=== PATIENT | male | born 1955 | race Caucasian/White ===

== ENCOUNTER 2018-05-08 14:45 | Outpatient (RCR) | payer MEDICARE, SELFPAY ==
[2018-05-08 15:04] VITALS: BP 153/85; PULSE 64; RESP 16; TEMP 36.6; BMI 46.7
--- NOTE | 2018-05-08 16:08 | PCM.WC.PN ---
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 He relates there is delayed healing and asked for help. He denies recent trauma. He denies claudication, he does have some burning sensation to the lower extremities. He denies fever, chill, nausea, vomiting. Progress of Wound: Stable - Physical Exam Vital Signs Temp Pulse Resp BP 98 F 64 16 153/85 H 05/08/18 15:04 05/08/18 15:04 05/08/18 15:04 05/08/18 15:04 General: Alert, Oriented x3, Cooperative, No apparent distress HEENT: Atraumatic Extremities: No cyanosis, Capillary Refill Less than 3 Seconds, No Calf Tenderness - Negative Roslyn and Oropeza bilateral, Diminished Peripheral Pulses, Edema Skin: Ulcer/ Wound - No purulence, erythema, streaking, odor, necrosis, or infection. There is no deep exposed tissue. The adjacent skin is atrophic and hairless. Wound Measurements and Assessment WC - Nurse 1 - General Ulcer Measurement Start: 05/08/18 15:04 Freq: Status: Active Protocol: Activity Type Activity Date Activity User E-Sign Co-Sign Detail Recorded Client Recorded Date Recorded By Document 05/08/18 15:04 [facility] [id number] 05/08/18 15:25 [facility] 05/08/18 15:04 Wound Center Nurse 1 [Ulcer Assessment] #1- RT MED LE -Combined with other wound No -Current Size (cm) - Length 4.2 -Current Size (cm) - Width 4.9 -Current Size (cm) - Depth 0.2 -Total Square Cm 20.58 -Date of Last Picture (Recall this 05/08/18 field) -Photo Taken Yes -Epithelialization None Present -Tunneling No -Undermining/Tunneling No -Circular Undermining No -Exudate Amt None Present (0 %) -Wound Margin Distinct, Outline Attached -Granulation Amt Large (67-100%) -Granulation Quality Red -Slough/Fibrin Yes -Necrosis Amt Small (1-33%) -Necrotic Tissue Type Adherent Slough -Structure Exposed None/Limited to Skin Breakdown -Texture (Joelle-wound Skin Appearance) Scarring -Moisture (Joelle-wound Skin Appearance Assessed ) Dry/Scaly -Color (Joelle-wound Skin Appearance) Hemosiderin Staining -Temperature (Joelle-wound Skin No Abnormality Appearance) (Pt Warm) -Tenderness on Palpation (Joelle-wound No Skin Appearance) -Ulcer Cleansing Rinsed/ Irrigated with Saline -Foul Odor after Cleansing No -Anesthetic Used 4% Lidocaine Solution [Edema Assessment] -Lower Limb Edema Present Yes -Right Calf (cm) 51.5 -Right Ankle (cm) 32 -Left Calf (cm) 48 -Left Ankle (cm) 29 WC - Nurse 2 - General Ulcer CM Notes Start: 05/08/18 15:04 Freq: Status: Active Protocol: Activity Type Activity Date Activity User E-Sign Co-Sign Detail Recorded Client Recorded Date Recorded By Document 05/08/18 15:55 [id number] 05/08/18 16:03 05/08/18 15:55 Wound Center Nurse 2 [Procedure/Treatment] #1- RT MED LE -Time 15:57 -Correct Patient Yes -Correct Side, Site, Position Yes -Correct Procedure Yes -Procedure Performed Yes -Type of Procedure Debridement -Clinical Debridement Subcutaneous -Post Debridement Size (cm) - Length 4.3 -Post Debridement Size (cm) - Width 5 -Post Debridement Size (cm) - Depth 0.2 -Total Square Cm 21.5 -Wound/Ulcer Outcome Not Healed -Ulcer Cleansing Rinsed/ Irrigated with Saline -Foul Odor after Cleansing No -Bioengineered Tissue No -Bleeding Controlled with Pressure -Treatment Response Procedure Tolerated Well [See Physician Procedure note for Specifics] Pain Scale: 0-10 Numeric [Pain] -Is Patient Pain Free? Yes Musculoskeletal: No Tenderness to Palpation of Joints or Extremities, Muscle Wasting, - - 5 out of 5 ankle muscle strength in all directions. Active range of motion digits noted. The compartments of bilateral lower extremities remain soft on palpation. Neurological: Sensory exam intact to light touch and pain Psych/Mental Status: Normal Affect, Appropriate Debridement Note Post-Debridement Measurements/Treatment WC - Nurse 2 - General Ulcer CM Notes Start: 05/08/18 15:04 Freq: Status: Active Protocol: Activity Type Activity Date Activity User E-Sign Co-Sign Detail Recorded Client Recorded Date Recorded By Document 05/08/18 15:55 [id number] 05/08/18 16:03 05/08/18 15:55 Wound Center Nurse 2 #1- RT MED LE -Time 15:57 -Correct Patient Yes -Correct Side, Site, Position Yes -Correct Procedure Yes -Procedure Performed Yes -Type of Procedure Debridement -Clinical Debridement Subcutaneous -Post Debridement Size (cm) - Length 4.3 -Post Debridement Size (cm) - Width 5 -Post Debridement Size (cm) - Depth 0.2 -Total Square Cm 21.5 -Wound/Ulcer Outcome Not Healed -Ulcer Cleansing Rinsed/ Irrigated with Saline -Foul Odor after Cleansing No -Bioengineered Tissue No -Bleeding Controlled with Pressure -Treatment Response Procedure Tolerated Well Pain Scale: 0-10 Numeric Is Patient Pain Free? Yes Wound debrided: leg Laterality: Right Type of Debridement: Excisional debridement Anesthesia Used: 4% Lidocaine Solution Depth: in the subcutaneous layer Percentage of wound debrided: 100 Instrument Used: #15 blade Tissue Removed: fibrous, devitalized subcutaneous, biofilm, slough Severity: Fat Layer Exposed Amount of bleeding with debridement: Mild Bleeding Controlled with: Pressure Patient tolerated procedure well Assessment/Plan Assessment: Right leg ulcer with fat layer exposed. Edema lower extremity. Liver disease secondary to previous alcoholism. Malnutrition. Delayed healing Plan: I reviewed and discussed his case today. The basics of wound healing and etiology were reviewed in detail. Excisional subcutaneous debridement was performed as noted in the clinical panel. He is reassured no deep tissue or signs of infection are noted today. To change his dressing daily with hydrogel and Adaptic. Advanced wound care products will be considered if lack of healing is noted. I recommend a nutritional supplementation of Dustin to optimize healing; a prescription was provided. To elevate limbs at rest to reduce edema. To avoid idle standing or sitting. To wear Tubigrip compression dressings and these were dispensed today. I recommend a baseline labs to better understand his medical baseline and he had a white blood cell count 5.5 and albumin of 3.4. It is noted that his alkaline phosphatase and AST is slightly elevated. Blood flow studies will be ordered to better assess his lower extremity healing capability. To monitor for infection development. I answered all his questions. I recommend he follow-up in [facility] or call sooner if he has any questions or concerns.
== END 2018-05-19 23:59 ==
LOC: WC 14:45
PROVIDERS: Visit Provider Podiatrist
DX: I73.9 Peripheral vascular disease, unspecified (principal); K70.9 Alcoholic liver disease, unspecified; R60.0 Localized edema; L97.812 Non-pressure chronic ulcer of other part of right lower leg with fat layer exposed
CPT/HCPCS: 11042; 11045; 99213; G0463

== ENCOUNTER → 2018-05-09 08:22 | Outpatient (CLI) | payer BC, SELFPAY ==
[2018-05-09 09:06] LABS: Absolute Lymphocyte Count 0.88 X10^3/ul (0.83-4.51); Absolute Neutrophil Count 3.6 X10^3/uL (2.0-7.7); Basophil# 0.07 X10^3/uL; Basophil% 1.3 % (0-1); Eosinophil# 0.17 X10^3/uL; Eosinophils% 3.1 % (0-5); Hematocrit 44.9 % (40-54); Hemoglobin 15.5 g/dl (13.0-16.5); Lymphocyte # 0.88 X10^3/ul (4.0); Mean Corp Hgb Conc 34.5 g/gl (32-36); Mean Corpuscular Volume 92.6 fL (80-94); Monocyte# 0.76 X10^3/uL; Monocyte% 13.8 % (0-10); Neutrophil # 3.62 X10^3/uL (2.7-7.7); Neutrophil % 65.6 % (47-70); Platelet Count 131 K/mm3 (150-450); RBC Distribution Width CV 12.9 % (11.6-14.6); RBC Distribution Width SD 43.1 fl (35.1-43.9); Red Blood Count 4.85 M/mm3 (4.6-6.2); White Blood Count 5.5 K/mm3 (4.4-11.0)
[2018-05-09 09:07] LABS: POSITIVE COUNT NO; POSITIVE DIFFERENTIAL NO; POSITIVE MORPHOLOGY NO
[2018-05-09 09:14] LABS: AST(SGOT) 39 U/L (15-37); Alanine Aminotransfer ALT/SGPT 31 U/L (16-61); Albumin, Serum 3.4 g/dL (3.2-5.0); Alkaline Phosphatase 124 U/L (45-117); Anion Gap 9 (5-15); BUN 23 mg/dL (7-18); BUN/Creat Ratio 15.6 RATIO (10-20); Calcium,Total 8.7 mg/dL (8.5-10.1); Chloride 102 mmol/L (98-107); Creatinine, Serum 1.47 mg/dL (0.70-1.30); EST Glomerular Filtration Rate 51 mL/min (>60); Est Glom Filt Rate - Afr Amer 62 mL/min (>60); Globulin 3.5 g/dL (2.2-4.2); Glucose 128 mg/dL (74-106); Protein, Total 6.9 g/dL (6.4-8.2); Sodium Level 136 mmol/L (136-145)
== END ==
PROVIDERS: Visit Provider Podiatrist
DX: I73.9 Peripheral vascular disease, unspecified (principal); R60.0 Localized edema; L97.912 Non-pressure chronic ulcer of unspecified part of right lower leg with fat layer exposed
CPT/HCPCS: 36415; 80053; 85025

== ENCOUNTER 2018-05-29 09:45 | Outpatient (RCR) | payer BC, SELFPAY ==
[2018-05-20 01:47] VITALS: BP 153/85; PULSE 64; RESP 16; TEMP 36.6
[2018-05-22 15:31] VITALS: BP 130/76; PULSE 58; RESP 20; TEMP 36.8
--- NOTE | 2018-05-22 17:11 | PN.PCM_ITS ---
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 He relates there is delayed healing and asked for help. His leg is still very swollen. He denies recent trauma. He denies claudication, he does have some burning sensation to the lower extremities. He denies fever, chill, nausea, vomiting. Progress of Wound: Stable - Physical Exam Vital Signs Temp Pulse Resp BP 98.2 F 58 L 20 H 130/76 H 05/22/18 15:31 05/22/18 15:31 05/22/18 15:31 05/22/18 15:31 General: Alert, Oriented x3, Cooperative Extremities: No cyanosis, Capillary Refill Less than 3 Seconds, No Calf Tenderness - negative bladimir and hardy bilatera. no calor or erythema is noted right limb, Diminished Peripheral Pulses, Edema - moderate bilateral lower extremities Skin: Ulcer/ Wound - no purulence, no erythema, no infection, no streaking. peripheral skin is hairless and atrophic Wound Measurements and Assessment WC - Nurse 1 - General Ulcer Measurement Start: 05/22/18 15:30 Freq: Status: Active Protocol: Activity Type Activity Date Activity User E-Sign Co-Sign Detail Recorded Client Recorded Date Recorded By Document 05/22/18 15:31 DL [id number] 05/22/18 15:43 DL 05/22/18 15:31 Wound Center Nurse 1 [Ulcer Assessment] #2 R Med LE Sup. Cluster -Current Size (cm) - Length 4.7 -Current Size (cm) - Width 2 -Current Size (cm) - Depth 0.1 -Total Square Cm 9.4 -Photo Taken Yes -Exudate Amt Small (1-33%) -Exudate Type Serosanguineous -Wound Margin Distinct, Outline Attached -Granulation Amt Medium (34-66%) -Granulation Quality [place] Red -Necrosis Amt Medium (34-66%) -Necrotic Tissue Type Adherent Slough -Structure Exposed N/A -Texture (Joelle-wound Skin Appearance) Scarring -Moisture (Joelle-wound Skin Appearance Maceration ) -Color (Joelle-wound Skin Appearance) Erythema Hemosiderin Staining Rubor -Temperature (Joelle-wound Skin No Abnormality Appearance) (Pt Warm) -Ulcer Cleansing Rinsed/ Irrigated with Saline -Foul Odor after Cleansing No -Anesthetic Used 4% Lidocaine Solution #1- RT MED LE -Current Size (cm) - Length 4.2 -Current Size (cm) - Width 5 -Current Size (cm) - Depth 0.1 -Total Square Cm 21.0 -Photo Taken No -Exudate Amt Medium (34-66%) -Exudate Type Serosanguineous -Wound Margin Distinct, Outline Attached -Granulation Amt Large (67-100%) -Granulation Quality Red -Necrosis Amt Small (1-33%) -Necrotic Tissue Type Adherent Slough -Structure Exposed N/A -Texture (Joelle-wound Skin Appearance) Scarring -Moisture (Joelle-wound Skin Appearance Maceration ) -Color (Joelle-wound Skin Appearance) No Abnormality Erythema Hemosiderin Staining Rubor -Tenderness on Palpation (Joelle-wound No Skin Appearance) -Ulcer Cleansing Rinsed/ Irrigated with Saline -Foul Odor after Cleansing No -Anesthetic Used 4% Lidocaine Solution [Edema Assessment] -Right Calf (cm) 50.5 -Right Ankle (cm) 32 -Point of Measurement (cm from the 47.3 distal point) -Point of measurement (cm from the 29.5 medial instep) WC - Nurse 2 - General Ulcer CM Notes Start: 05/22/18 15:30 Freq: Status: Active Protocol: Activity Type Activity Date Activity User E-Sign Co-Sign Detail Recorded Client Recorded Date Recorded By Document 05/22/18 15:55 [id number] 05/22/18 15:57 05/22/18 15:55 Wound Center Nurse 2 [Procedure/Treatment] #2 R Med LE Sup. Cluster -Time 15:56 -Correct Patient Yes -Correct Side, Site, Position Yes -Correct Procedure Yes -Procedure Performed Yes -Type of Procedure Debridement -Clinical Debridement Subcutaneous -Post Debridement Size (cm) - Length 4.8 -Post Debridement Size (cm) - Width 2.1 -Post Debridement Size (cm) - Depth 0.1 -Total Square Cm 10.08 -Wound/Ulcer Outcome Not Healed -Ulcer Cleansing Rinsed/ Irrigated with Saline -Foul Odor after Cleansing No -Bioengineered Tissue No -Topical Lidocaine (%) 4 -Bleeding Controlled with Pressure -Treatment Response Procedure Tolerated Well #1- RT MED LE -Time 15:56 -Correct Patient Yes -Correct Side, Site, Position Yes -Correct Procedure Yes -Procedure Performed Yes -Type of Procedure Debridement -Clinical Debridement Subcutaneous -Post Debridement Size (cm) - Length 4.3 -Post Debridement Size (cm) - Width 5.1 -Post Debridement Size (cm) - Depth 0.1 -Total Square Cm 21.93 -Wound/Ulcer Outcome Not Healed -Ulcer Cleansing Rinsed/ Irrigated with Saline -Foul Odor after Cleansing No -Bioengineered Tissue No -Topical Lidocaine (%) 4 -Bleeding Controlled with Pressure -Treatment Response Procedure Tolerated Well [See Physician Procedure note for Specifics] Pain Scale: 0-10 Numeric [Pain] -Is Patient Pain Free? Yes Musculoskeletal: No Tenderness to Palpation of Joints or Extremities, Muscle Wasting, - - compartment lower leg right remains soft Neurological: - - lack of normal epicritic sensation via touch and debridement noted Psych/Mental Status: Normal Affect, Appropriate Debridement Note Post-Debridement Measurements/Treatment WC - Nurse 2 - General Ulcer CM Notes Start: 05/22/18 15:30 Freq: Status: Active Protocol: Activity Type Activity Date Activity User E-Sign Co-Sign Detail Recorded Client Recorded Date Recorded By Document 05/22/18 15:55 [id number] 05/22/18 15:57 05/22/18 15:55 Wound Center Nurse 2 #2 R Med LE Sup. Cluster -Time 15:56 -Correct Patient Yes -Correct Side, Site, Position Yes -Correct Procedure Yes -Procedure Performed Yes -Type of Procedure Debridement -Clinical Debridement Subcutaneous -Post Debridement Size (cm) - Length 4.8 -Post Debridement Size (cm) - Width 2.1 -Post Debridement Size (cm) - Depth 0.1 -Total Square Cm 10.08 -Wound/Ulcer Outcome Not Healed -Ulcer Cleansing Rinsed/ Irrigated with Saline -Foul Odor after Cleansing No -Bioengineered Tissue No -Topical Lidocaine (%) 4 -Bleeding Controlled with Pressure -Treatment Response Procedure Tolerated Well #1- RT MED LE -Time 15:56 -Correct Patient Yes -Correct Side, Site, Position Yes -Correct Procedure Yes -Procedure Performed Yes -Type of Procedure Debridement -Clinical Debridement Subcutaneous -Post Debridement Size (cm) - Length 4.3 -Post Debridement Size (cm) - Width 5.1 -Post Debridement Size (cm) - Depth 0.1 -Total Square Cm 21.93 -Wound/Ulcer Outcome Not Healed -Ulcer Cleansing Rinsed/ Irrigated with Saline -Foul Odor after Cleansing No -Bioengineered Tissue No -Topical Lidocaine (%) 4 -Bleeding Controlled with Pressure -Treatment Response Procedure Tolerated Well Pain Scale: 0-10 Numeric Is Patient Pain Free? Yes Wound debrided: leg Laterality: Right Type of Debridement: Excisional debridement Anesthesia Used: 4% Lidocaine Solution Depth: in the subcutaneous layer Percentage of wound debrided: 100 Instrument Used: #15 blade Tissue Removed: fibrous, devitalized subcutaneous, biofilm, slough Severity: Fat Layer Exposed Amount of bleeding with debridement: Mild Bleeding Controlled with: Pressure Patient tolerated procedure well Assessment/Plan Assessment: Right leg ulcer with fat layer exposed. Edema lower extremity. Liver disease secondary to previous alcoholism. Malnutrition. Delayed healing Plan: I reviewed and discussed his case today. The basics of wound healing and etiology were reviewed in detail. Excisional subcutaneous debridement was performed as noted in the clinical panel. He is reassured no deep tissue or signs of infection are noted today. To change his dressing daily with adiel. He is certain he wants to use a white pad dressing that he has used in the past at a different wound care center. I reassured him that I do not know what product he is talking about and we will consider it if he has more information in the future. Advanced wound care products will be considered if lack of healing is noted. I recommend a nutritional supplementation of Dustin to optimize healing; a prescription was provided. To elevate limbs at rest to reduce edema. To avoid idle standing or sitting. To wear Tubigrip compression dressings and these were dispensed today. His leg edema is a concern and he defers vascular work up. He has venous insufficiency and uncontrolled edema management; compliance was discussed today. I recommend a baseline labs to better understand his medical baseline and he had a white blood cell count 5.5 and albumin of 3.4. It is noted that his alkaline phosphatase and AST is slightly elevated. Blood flow studies will be ordered to better assess his lower extremity healing capability. To monitor for infection development. I answered all his questions. I recommend he follow-up in 1 week at the [facility] or call sooner if he has any questions or concerns.
== END 2018-06-19 23:59 ==
LOC: WC 09:45
PROVIDERS: Visit Provider Podiatrist
DX: I73.9 Peripheral vascular disease, unspecified (principal); L97.812 Non-pressure chronic ulcer of other part of right lower leg with fat layer exposed; K70.9 Alcoholic liver disease, unspecified; R60.0 Localized edema; I87.2 Venous insufficiency (chronic) (peripheral)
CPT/HCPCS: 11042; 11045